=== PATIENT | male | born 1950 | race Caucasian/White ===

== ENCOUNTER 2017-05-14 10:25 | Inpatient (IN) | payer BC ==
[~2017-05-14] VITALS: Ht 177.8 cm; Wt 88.1 kg
[2017-05-14 12:23] LABS: BASOPHIL % 0.1 % (0-2)
[2017-05-14 12:29] LABS: PLATELET COUNT 118 x10^3mcL (130-400); RED CELL DISTRIBUTION WIDTH 14.8 % (11.5-14.5)
[2017-05-14 12:40] LABS: CALCIUM 8.3 mg/dL (8.5-10.1); CARBON DIOXIDE 24.5 mmol/L (21-32); CHLORIDE SERUM 101 mmol/L (98-107); CREATININE SERUM 0.9 mg/dL (0.7-1.3); GFR1 > 60 mL/min; GLUCOSE SERUM 102 mg/dL (74-106); POTASSIUM SERUM 3.4 mmol/L (3.5-5.1); SODIUM SERUM 137 mmol/L (136-145)
[2017-05-14 12:43] LABS: UA SPECIFIC GRAVITY <=1.005 (1.005-1.035); microscopic required? YES; urine erythrocyte TRACE (NEGATIVE)
[2017-05-14] MEDS ORDERED: SIMVASTATIN10 M1 (16:31)
[2017-05-14 17:19] VITALS: BP 166/93
[2017-05-14 17:21] VITALS: Ht 177.8 cm; Wt 88.1 kg
[2017-05-14] MEDS ORDERED: METOPROLOL TAR100 MG PO (17:31)
[2017-05-14] MEDS ORDERED: LIPITOR80 MG GT (17:32)
[2017-05-14 17:42] LABS: MAGNESIUM 1.6 mg/dL (1.8-2.4)
[2017-05-14 17:54] LABS: FREE T4 1.08 ng/dL (0.76-1.46); T3 TOTAL 0.5 ng/mL
[2017-05-14 17:55] LABS: FREE THYROXINE INDEX 1.5 ug/dL (1.4-4.5); T4(THYROXINE) 3.9 ug/dL (4.7-13.3)
[2017-05-14 20:15] LABS: BILIRUBIN DIRECT 0.86 mg/dL (0.0-0.2); BILIRUBIN TOTAL 3.52 mg/dL (0.20-1.00); TOTAL PROTEIN, SERUM 6.5 g/dL (6.4-8.2)
[2017-05-14 20:18] LABS: ALBUMIN 2.8 g/dL (3.4-5.0)
[2017-05-14] MEDS ORDERED: TEMAZEPAM15 MG PO (20:27)
[2017-05-14 20:48] VITALS: BP 109/67
[2017-05-14 21:19] LABS: BILIRUBIN DIRECT 1.11 mg/dL (0.0-0.2); BILIRUBIN TOTAL 3.4 mg/dL (0.20-1.00)
[2017-05-15 05:58] LABS: BASOPHIL % 0.2 % (0-2)
[2017-05-15 06:02] VITALS: BP 121/68
[2017-05-15 06:18] LABS: MAGNESIUM 1.8 mg/dL (1.8-2.4); PHOSPHOROUS 3.2 mg/dL (2.5-4.9)
[2017-05-15 06:31] LABS: PLATELET COUNT 108 x10^3mcL (130-400); RED CELL DISTRIBUTION WIDTH 15.1 % (11.5-14.5)
[2017-05-15 07:03] LABS: CALCIUM 8.2 mg/dL (8.5-10.1); CARBON DIOXIDE 25.4 mmol/L (21-32); CHLORIDE SERUM 105 mmol/L (98-107); CREATININE SERUM 0.8 mg/dL (0.7-1.3); GFR1 > 60 mL/min; GLUCOSE SERUM 77 mg/dL (74-106); POTASSIUM SERUM 4.1 mmol/L (3.5-5.1); SODIUM SERUM 142 mmol/L (136-145)
[2017-05-15 10:23] VITALS: BP 117/65
[2017-05-15 14:07] VITALS: BP 106/62
[2017-05-15 18:45] VITALS: BP 115/68
[2017-05-15 19:54] VITALS: BP 123/63
[2017-05-16 05:55] VITALS: BP 107/58
[2017-05-16 07:03] LABS: CALCIUM 8.2 mg/dL (8.5-10.1); CARBON DIOXIDE 26.2 mmol/L (21-32); CHLORIDE SERUM 104 mmol/L (98-107); CREATININE SERUM 0.7 mg/dL (0.7-1.3); GFR1 > 60 mL/min; GLUCOSE SERUM 96 mg/dL (74-106); POTASSIUM SERUM 3.2 mmol/L (3.5-5.1); SODIUM SERUM 138 mmol/L (136-145)
[2017-05-16 07:20] LABS: BASOPHIL % 0.2 % (0-2); PLATELET COUNT 132 x10^3mcL (130-400)
[2017-05-16 09:51] VITALS: BP 123/70
[2017-05-16 12:58] VITALS: BP 133/78
[2017-05-16 16:57] VITALS: BP 120/64
[2017-05-16 21:09] VITALS: BP 129/61
[2017-05-16] MEDS ORDERED: TEMAZEPAM15 MG PO (21:25)
[2017-05-17 05:55] VITALS: BP 138/69
[2017-05-17 06:23] LABS: BASOPHIL % 0.4 % (0-2); CALCIUM 8.1 mg/dL (8.5-10.1); CARBON DIOXIDE 29.6 mmol/L (21-32); CHLORIDE SERUM 106 mmol/L (98-107); CREATININE SERUM 0.8 mg/dL (0.7-1.3); GFR1 > 60 mL/min; GLUCOSE SERUM 92 mg/dL (74-106); PLATELET COUNT 155 x10^3mcL (130-400); POTASSIUM SERUM 3.7 mmol/L (3.5-5.1); SODIUM SERUM 139 mmol/L (136-145)
[2017-05-17 06:27] LABS: RED CELL DISTRIBUTION WIDTH 14.8 % (11.5-14.5)
[2017-05-17 09:57] VITALS: BP 131/77
[2017-05-17 13:10] VITALS: BP 131/77
[2017-05-17 17:45] VITALS: BP 141/76
[2017-05-17] MEDS ORDERED: LEVAQUIN500 M1 PO (18:35)
[2017-05-17] MEDS ORDERED: GAS RELIEF 8080 MG PO (18:35)
[2017-05-17] MEDS ORDERED: LAC PO (18:35)
[2017-05-17] MEDS ORDERED: LOPERAMIDE HCL2 M1 PO (18:39)
[2017-05-17] MEDS ORDERED: LOMOTIL1 TAB PO (18:39)
== END 2017-05-17 19:25 | disposition home or self-care (01) | DRG 441 ==
LOC: ED 10:25 → DU 15:57
PROVIDERS: Emergency Medicine Emergency Medical Services; Family Medicine; ADMIT Student in an Organized Health Care Education/Training Program
DX: K75.0 Abscess of liver (principal); E43 Unspecified severe protein-calorie malnutrition; N39.0 Urinary tract infection, site not specified; E78.5 Hyperlipidemia, unspecified; I10 Essential (primary) hypertension; Z68.30 Body mass index [BMI] 30.0-30.9, adult; N40.0 Benign prostatic hyperplasia without lower urinary tract symptoms; Z88.0 Allergy status to penicillin; E87.6 Hypokalemia; E83.51 Hypocalcemia
CPT/HCPCS: 83880; 84439; J0696; J1170; J1885; J2060; J2405; J3480; J3490; J7030; Q0092; Q9967

== ENCOUNTER 2019-07-24 01:11 | Inpatient (IN) | payer OTHER ==
[~2019-07-24] VITALS: Ht 177.8 cm; Wt 90.7 kg
[~2019-07-24 01:11] MED LIST: GAS RELIEF 8080 MG PO; LAC PO; LEVAQUIN500 M1 PO; LIPITOR80 MG GT; LOMOTIL1 TAB PO; LOPERAMIDE HCL2 M1 PO; METOPROLOL TAR100 MG PO; SIMVASTATIN10 M1; TEMAZEPAM15 MG PO
[2019-07-24 01:16] VITALS: Ht 177.8 cm; Wt 90.7 kg
--- NOTE | 2019-07-24 01:23 | NUR ---
PT C/O INTERMITTENT CHEST PAIN X1 MONTH. PT DESCRIBES PAIN 7/10 THROBBING PAIN THAT COMES AND GOES. PT STS THAT PAIN GETS WORSE W/ PHYSICAL EXERTION, AND LATELY WORSE WHEN HE LAYS DOWN AT NIGHT. PT STS THAT HE HAS ALSO BEEN FEELING DIZZY. PT REPORTS NO OTHER COMPLAINTS. PT DENIES SOB, BLURRED VISION, FEVER/CHILLS. PT PLACED ON SPOUT WORKER AND PULSE OX. NAD NOTED AT THIS TIME. AWAITING MSE. WILL CONTINUE TO MONITOR.
[2019-07-24 01:51] LABS: BASOPHIL % 0.7 % (0-2); RED CELL DISTRIBUTION WIDTH 12.3 % (11.5-14.5)
[2019-07-24 01:56] LABS: PLATELET COUNT 200 x10^3mcL (130-400)
[2019-07-24 02:00] LABS: CALCIUM 8.7 mg/dL (8.5-10.1); CARBON DIOXIDE 31.1 mmol/L (21-32); CHLORIDE SERUM 103 mmol/L (98-107); CREATININE SERUM 1.1 mg/dL (0.7-1.3); GFR1 > 60 mL/min; GLUCOSE SERUM 98 mg/dL (74-106); POTASSIUM SERUM 4.1 mmol/L (3.5-5.1); SODIUM SERUM 139 mmol/L (136-145)
[2019-07-24 02:04] LABS: ALBUMIN 3.8 g/dL (3.4-5.0); ALKALINE PHOSPHATASE 52 U/L (46-116); ALT/SGPT 25 U/L (16-63); AST/SGOT 14 U/L (15-37); BILIRUBIN TOTAL 0.46 mg/dL (0.20-1.00); TOTAL PROTEIN, SERUM 7.1 g/dL (6.4-8.2)
--- NOTE | 2019-07-24 02:48 | NUR ---
NITRO PASTE ADMINSTERED PER MD ORDER. 20G IV PLACED IN L AC. WILL CONTINUE TO MONITOR.
[2019-07-24] MEDS ORDERED: TOPROL XL50 MG PO (03:44)
--- NOTE | 2019-07-24 03:45 | NUR ---
PT AWAKE AND ALERT, LAYING IN POSITION OF COMFORT. VSS, RESPS E/U, NAD NOTED. SPOUSE AT BEDSIDE. CALL LIGHT W/IN REACH. NAD NOTED AT THIS TIME. AWAITING BED ASSIGNMENT.
--- NOTE | 2019-07-24 03:53 | NUR ---
REPORT GIVEN TO JESSENIA MON TO ASSUME PT CARE
--- NOTE | 2019-07-24 04:15 | NUR ---
RECIEVED PATIENT FROM ED WITH NURSE. ABLE TO AMBULATE TO BED. A/O X4. RATES CP 3/10 NON-RADIATING. HAS NITRO PATCH ON CHEST. DENIES ANY OTHER SYMPTOMS. ON TELE 6 SB 57 WITH BBB. IV TO LAC INFUSING WITHOUT ERYTHEMA OR INFILTRATION. CALL LIGHT AND BEDSIDE TABLE WITHIN REACH.
[2019-07-24 04:34] VITALS: BP 92/62
[2019-07-24 04:39] LABS: PHOSPHOROUS 3.8 mg/dL (2.5-4.9)
[2019-07-24 04:42] LABS: CHOLESTEROL/HDL RATIO 6.5
[2019-07-24 04:45] LABS: T3 TOTAL 0.71 ng/mL
[2019-07-24 04:49] LABS: FREE T4 0.89 ng/dL (0.76-1.46)
--- NOTE | 2019-07-24 06:25 | NUR ---
PATIENT IS RESTING IN BED, BREATHS EVEN AND REGULAR, NO DISTRESS. NITRO DOSE HELD THIS MORNING DUE TO LOW BP. IV INFUSING WITHOUT ERYTHEMA OR INFILTRATION, CALL LIGHT AND BEDSIDE TABLE WITHIN REACH. AT BEDSIDE WITH HOME MEDS. WILL ADD THEM TO MED REC, AND ENDORSE CARE TO DAYSHIFT NURSE.
[2019-07-24] MEDS ORDERED: BENAZEPRIL HCL/1 TAB PO (06:34)
--- NOTE | 2019-07-24 07:30 | NUR ---
THE PATIENT AWAKE AND ALERT; ORIENTED TO PERSON, PLACE AND TIME. PATIENT DENIES SHORTNESS OF BREATH, NAUSEA/VOMITING AT THIS TIME. PATIENT STATES HAVING MILD PRESSURE IN CHEST 1/10 AND TOLERABLE. NITRO PATCH REMAINS ON THE PATIENT'S CHEST. IVF NS TO KEEP VEIN OPEN VIA IV SITE AT LAC. TELE # 6 READS SINUS RHYTHM WITH BBB. CALL LIGHT WITHIN REACH. SIDE RAILS UP X2. BED IS AT LOWEST POSITION AND ALARM IS ON.
[2019-07-24 07:52] VITALS: BP 110/69
[2019-07-24 08:20] LABS: BASOPHIL % 1.2 % (0-2); PLATELET COUNT 194 x10^3mcL (130-400); RED CELL DISTRIBUTION WIDTH 12.8 % (11.5-14.5)
[2019-07-24 08:35] LABS: CALCIUM 8.1 mg/dL (8.5-10.1); CARBON DIOXIDE 28.4 mmol/L (21-32); CHLORIDE SERUM 104 mmol/L (98-107); CREATININE SERUM 0.9 mg/dL (0.7-1.3); GFR1 > 60 mL/min; GLUCOSE SERUM 139 mg/dL (74-106); POTASSIUM SERUM 4.1 mmol/L (3.5-5.1); SODIUM SERUM 139 mmol/L (136-145)
[2019-07-24 10:52] LABS: microscopic required? NO
--- NOTE | 2019-07-24 11:05 | NUR ---
NOTE FROM 903 TO 1044: RECEIVED A PHONE CALL FROM [employer] NOTIFYING THE TROP LEVEL [phone]. ATTEMPTED TO CALL DR. YEH VIA SERVICE: [phone]. THE MACHINE REQUESTED TO WAIT FOR THE NEXT AVAILABLE FORGE OPERATOR. WAITING FOR 2 MINUTES NO ANSWER. ATTEMPTED SEVERAL TO CALL RESIDENT STUDENT SUPPORT COUNSELOR AT [phone]; NO ANSWERED. PAGED GATE RESIDENT STUDENT SUPPORT COUNSELOR TO NOTIFY THE TROP LEVEL AND AWAIT FOR CALL BACK. THE CHARGE NURSE CAME BACK FROM THE MEETING AND MADE AWARE. THE CHARGE NURSE NOTIFIED DR. YEH AND DR. ROTHMAN WHEN THEY WERE JUST OUT OF THE MEETING. NEW ORDER: HEPARIN DRIP RECEIVED. WILL CARRY OUT THE ORDER.
[2019-07-24 11:07] LABS: urine erythrocyte NEGATIVE (NEGATIVE)
--- NOTE | 2019-07-24 11:42 | NUR ---
AT 1134; BOLUS OF 5500 UNITS OF HEPARIN ADMINISTERED TO THE PATIENT AND HEPARIN DRIP INITIATED AT 1136 AT 1100 UNITS/HR. PER HEPARIN PROTOCOL. WILL RECHECK PTT AT 1735.
[2019-07-24 11:46] LABS: AMPHETAMINE QUAL UR NONE DETECTED (See below)
[2019-07-24 11:48] VITALS: BP 108/56
[2019-07-24 16:18] VITALS: BP 112/70
--- NOTE | 2019-07-24 18:36 | NUR ---
THE PTT LEVEL IS 72.7; THE HEPARIN DRIP TITRATED FROM 1100UNITS/HR DOWN TO 900 UNITS/HR. NEXT PTT LEVEL WILL BE RECHECKED AT 2235.
--- NOTE | 2019-07-24 19:20 | NUR ---
REC'D PT FROM DAY NURSE. AT BEDSIDE. PT RESTING IN BED. AAOX4, SPEECH CLEAR, FOLLOWS COMMANDS. TELE 6. DENIES CP, DIZZINESS, OR PALPITATIONS. REPORTS INTERMITTENT CP TO MID CHEST BUT DENIES AT THIS TIME. NITRO PATCH TO STERNUM. PT DENIES DIZZINESS OR SCHULTE. NO EDEMA NOTED. DENIES RESP DISTRESS OR SOB. BREATHING EVEN/UNLABORED ON RA. ABD SOFT/ROUND. REPORTS MILD TENDERNESS TO L MID ABD UPON PALPATION. DENIES PAIN AT REST. VOIDING FREELY. AMBULATORY. SKIN INTACT. IV TO LAC PATENT AND INFUSING NS @ 10 ML/HR AND HEPARIN @ 900 UNITS/HR, SITE WNL. CALL LIGHT WITHIN REACH, BED AT LOWEST POSITION. WILL CONTINUE TO MONITOR.
[2019-07-24 20:51] VITALS: BP 100/61
--- NOTE | 2019-07-24 23:40 | NUR ---
PTT 47.2. NO CHANGE PER PROTOCOL. HEPARIN RESUMES @ 900 UNITS/HR. NEXT PTT @ 0230.
--- NOTE | 2019-07-25 02:12 | NUR ---
PT RESTING IN BED WITH EYES CLOSED. NO SIGNS OF DISTRESS OR PAIN NOTED. BREATHING EVEN/UNLABORED ON RA. HEPARIN INFUSING @ 900 UNITS/HR. CALL LIGHT WITHIN REACH, BED AT LOWEST POSITION. WILL CONTINUE TO MONITOR.
--- NOTE | 2019-07-25 03:43 | NUR ---
PTT 45.8. CONFIRMED WITH CHARGE NURSE KAVON TO ROUND UP TO 46. NO CHANGE IN RATE PER PROTOCOL. HEPARIN RESUMES @ 900 UNITS/HR. THERAPEUTIC X2. NEXT PTT 07/26 @ 0500.
--- NOTE | 2019-07-25 04:09 | NUR ---
PT C/O STERNAL CHEST PAIN 5/6-10, SHARP, RADIATING TO L ARM. ALSO HAS PAIN TO HIS GUMS. NO PAIN MEDS ON BOARD. NITRO PATCH IN PLACE TO MID STERNUM. CALLED DR. JOHNSON AND MADE AWARE. STATED WILL ORDER SOMETHING FOR PAIN.
--- NOTE | 2019-07-25 04:18 | NUR ---
PT STATES CP IS UP TO 06/[address] ALEX LE. WILL REQUEST MORPHINE.
[2019-07-25 04:19] VITALS: BP 157/86
--- NOTE | 2019-07-25 04:23 | NUR ---
SPOKE TO DR. JOHNSON AND MADE AWARE OF PT'S CP. STATED WILL ORDER ONE TIME MORPHINE.
--- NOTE | 2019-07-25 05:25 | NUR ---
PT AWAKE AND RESTING IN BED. REPORTS CP IS DOWN TO 2-3, STERNAL AND SHARP. PAIN TOLERABLE. NO OTHER COMPLAINTS AT THIS TIME. DENIES ANY SOB. HEPARIN CONTINUES @ 900 UNITS/HR. IV SITE TO LAC WNL. CALL LIGHT WITHIN REACH, BED AT LOWEST POSITION. WILL ENDORSE TO DAY NURSE.
--- NOTE | 2019-07-25 07:49 | NUR ---
PT LYING IN BED, EYES CLOSED. BREATHING EQUAL/ UNLABORED ON RA. HEPARIN RUNNING AT 900 UNITS/ HR. BED IN LOW POSITION, CALL LIGHT IN REACH, WILL CONTINUE TO MONITOR
[2019-07-25 08:31] VITALS: BP 118/76
[2019-07-25 12:31] VITALS: BP 129/78
--- NOTE | 2019-07-25 12:45 | NUR ---
PT SITTING IN BED, EATING LUNCH. BREATHING EQUAL/ UNLABORED ON RA. NO C/O PAIN AT THIS TIME. IV HEPARIN RUNNING AT 900 UNITS/ HR. IVF RUNNING AT 10ML/HR. NO REDNESS/ SWELLING TO IV SITE. BED IN LOW [id number], CALL LIGHT IN REACH. WILL CONTINUE TO MONITOR
--- NOTE | 2019-07-25 17:00 | NUR ---
PT LYING IN BED, A/A. BREATHING EQUAL/ UNLABORED ON RA. HEPARIN FLUIDS RUNNING AT 900 UNITS/HR. IVF RUNNING AT 10ML/HR. NO REDNESS/ SWELLING AT IV SITE. CHEST PAIN 2/10, RESTING COMFORTABLY IN BED. BED IN LOW POSITION, CALL LIGHT IN REACH, FAMILY AT BEDSIDE
[2019-07-25 17:02] VITALS: BP 134/78
--- NOTE | 2019-07-25 18:44 | NUR ---
PT RESTING IN BED A/A. BREATHING EQUAL/ UNLABORED ON RA. C/O 2/10 CHEST PAIN. PT STATES PT TOLERABLE AT THIS TIME. HEPARIN RUNNING AT 900 UNITS/HR, IVF RUNNING AT 10ML/HR. NO REDNESS/SWELLING AT IV SITE. BED IN LOW POSITION, CALL LIGHT IN REACH, BLEEDING PRECAUTIONS MAINTAINED. FAMILY AT BEDSIDE. WILL ENDORSE TO ON COMING NURSE
[2019-07-25 19:38] VITALS: BP 126/77
--- NOTE | 2019-07-25 20:23 | NUR ---
RECEIVED PTON HEPARIN DRIP AT 900UNITS/HR NO S/S OF BLEEDING NOTED, PT DENY CHEST PAIN AT THE MOMENT , ;WENDI SOUNDS CTA ABD SOFT BS ACTIVE X4, PT'S ON TELE NUMBER 6 THAT SHOWS NSR/BBB. . CALL LIGHT WITHIN PT;S REACH , WILL CON;T TO MONITOR AND ASSIST PT WITH CARE .
[2019-07-26] VITALS (12 sets, daily range): BP systolic 112–142; BP diastolic 61–78
--- NOTE | 2019-07-26 02:01 | NUR ---
PT'S IN BED WITH EYES CLOSED, TELE NSR WITH BBB, NPO AFTER MIDNIGHT , HEPAIN DRIN AT 900UNITS/HR NO S/S OF BLEEDING NOTED .
--- NOTE | 2019-07-26 05:08 | NUR ---
I HAVE REVIEWED THE DATA COLLECTION BY WHOLESALE BUYER (NAME):HARVEY BROWN ENTERED ON (DATE/TIME): I CONCUR WITH THE DATA AND ANY EXCEPTIONS OR COMMENTS ARE LISTED BELOW:
--- NOTE | 2019-07-26 06:14 | NUR ---
KEPT PT NPO AFTER MIDNIGHT ORDERED , ALL DUE MEDS GIVEN NO REACTION NOTED , PT'S IN BED AWAKE DENY CHEST PAIN AT THE MOMENT , PIV INTACT INFUSING HEPARIN AT 900UNITS/HR NO S/S OPF BLEEDING NOTED .
--- NOTE | 2019-07-26 07:31 | NUR ---
PT LYING IN BED A/A. BREATHING EQUAL/ UNLABORED ON RA. NO C/O CHEST PAIN AT THIS TIME. HEAPRIN RUNNING AT 900ML/HR AND NS RUNNING AT 10ML/HR. NO REDNESS/SWELLING TO IV SITE. BED IN LOW POSITION/ CALL LIGHT IN REACH, WILL CONTINUE TO MONITOR
--- NOTE | 2019-07-26 09:00 | NUR ---
HEAPRIN DRIP STOPPED FOR PROCEDURE PER DR DAS
--- NOTE | 2019-07-26 10:55 | NUR ---
PATIENT STATED THAT HE UNDERSTAND THE PROCEDURE THAT WAS EXPLAINED TO HIM BY DOCTOR DAS YESTERDAY AT BEDSIDE. CONSENT FOR CARDIAC CATHERIZATION SIGNED BY PATIENT WHO IS AWAKE, ALERT, ORIENTED X4. FAMILY MEMBERS AT BEDSIDE.
--- NOTE | 2019-07-26 10:59 | NUR ---
PT TO NICK SETTER, BY BED. NO ACUTE DISTRESS NOTED. NO REDNESS/ SWELLING TO IV SITE
--- NOTE | 2019-07-26 11:00 | NUR ---
RECEIVED TO OPS IN PREPARATION FOR TECHNICIAN SUBMARINE CABLE EQUIPMENT. AWAKE AND ALERT. TEMP 99.2. HR=56 ON PORTABLE STIFF LEG DERRICK OPERATOR SINUS MANUEL WITH BBB. DENIES CHEST DISCOMFORT. RESP 18 EVEN UNLABORED. PULSE OX 99% RA. NO RESP DISTRESS. NITRO PATCH IN PLACE LEFT UPPER CHEST. DC=886/73. RIGHT RADIAL AND RIGHT PEDAL PULSES PALPABLE. IV #20 ANGIO LAC PATENT INFUSING NORMAL SALINE TKO. PT ANXIOUS. STATES "NEVER HAD THIS BEFORE. THE DR SAID I CAME IN AT THE RIGHT TIME." CHRISTIANO HERE FROM TECHNICIAN SU[employer]QUIPMENT TO REVIEW PROCEDURE. RIGHT GROIN AND RIGHT RADIAL SITE SHAVE PREPPED BY [employer]. JESSIKA WIPES COMPLETED. LABS ON CHART. AND FAMILY AT BEDSIDE. WILL CONTINUE TO MONITOR. SIDE RAILS UP X2. CALL LIGHT IN REACH. NPO SINCE [id number]. ALLERGIC TO PCN, RED ARMBAND IN PLACE.
--- NOTE | 2019-07-26 11:55 | NUR ---
PT CONNECTED TO PORTABLE JUMPBASTING FACING BASTER. PT TAKEN TO ARTIFICIAL MARBLE WORKER AT THIS TIME VIA BED. IN OPS AT THIS TIME.
--- NOTE | 2019-07-26 13:34 | NUR ---
9065 PATIENT RECEIVED FROM EMAIL ENGINEER AT THIS TIME ACCOMPANIED BY EMAIL ENGINEER RNS. TELEPHONE ENDORSEMENT RECEIVED FROM ALEXANDRA MON. PATIENT ALERT AND AWAKE AND ABLE TO MAKE ALL NEEDS KNOWN. NO SOB NOTED. RESPIRATIONS EVEN AND UNLABORED. DENIES ANY PAIN OR DISTRESS AT THIS TIME. VSS. PATIENT NOTED WITH TEGADERM OVER R GROIN INSERTION SITE. SCANT AMOUNT OF RED STAIN NOTED. NO BLEEDING NO HEMATOMA NOTED. PEDAL PULSES EQUAL BILATERALLY. PATIENT MADE COMFORTABLE. CALL LIGHT WITHIN REACH. WILL CONTINUE TO MONITOR.
--- NOTE | 2019-07-26 13:59 | NUR ---
1355 PATIENT ALERT AND AWAKE AND ABLE TO MAKE ALL NEEDS KNOWN. NO SOB NOTED. RESPIRATIONS EVEN AND UNLABORED. DENIES ANY PAIN OR DISTRESS AT THIS TIME. SKIN WARM AND DRY TO TOUCH. PATIENT WITH AT BEDSIDE. VSS. DRESSING TO R GROIN REMAINS WITH SMALL AMOUNT OF RED STAINING. NO HEMATOMA OR BRUISING AT R GROIN SITE NOTED. PEDAL PULSES PALPABLE BILATERALLY. COMFORT AND SAFETY MEASURES IN PLACE. CALL LIGHT WITHIN REACH. WILL CONTINUE TO MONITOR.
--- NOTE | 2019-07-26 14:33 | NUR ---
1425 PATIENT ALERT AND AWAKE AND ABLE TO MAKE ALL NEEDS KNOWN. NO SOB NOTED. RESPIRATIONS EVEN AND UNLABORED. DENIES ANY PAIN OR DISTRESS AT THIS TIME. PATIENT REMAINS WITH SAME SMALL AMOUNT OF RED STAINING TO TEGADERM DRESSING. NO BLEEDING OR HEMATOMA NOTED. PEDAL PULSES EQUAL BILATERALLY. PATIENT TRANSPORTED BACK TO ROOM AT THIS TIME VIA BED AND ACCOMPANIED BY RN AND CHAIR MECHANIC ON TELE MONITORING. ALL NEEDS MET.
--- NOTE | 2019-07-26 14:34 | NUR ---
PT RETURNED FROM SILK SPREADER. A/A. BREATHING EQUAL/ UNLABORED ON RA. VSS. R. GROIN SITE DRESSING CDI, WITH SMALL AMOUNT OF BLOOD, AND NO SWELLING NOTED. DISTAL PULSES PALPABLE AND STRONG, COLOR WNL, AND FEET COOL TO THE TOUCH. IVF RUNNING AT 100ML/HR. NO REDNESS/ SWELLING TO IV SITE. PT WILL REMAIN ON BED REST FOR THE NEXT 4 HOURS, PT AWARE. BED IN LOW POSITION, CALL LIGHT IN REACH, FAMILY AT BED SIDE. WILL CONTINUE TO MONITOR
--- NOTE | 2019-07-26 15:00 | NUR ---
SEEN BY DOCTOR DELGADO AT BEDSIDE. NOTED NEW ORDER TO TRANSFER TO [facility]. PATIENT AND PATIENT'S SPOUSE MADE AWARE PLAN OF CARE.
--- NOTE | 2019-07-26 15:01 | NUR ---
NO BLEEDING/SWELLING AT R. GROIN SITE. BANDAGE CDI, WITH SMALL AMOUNT OF DRY BLOOD. DISTAL PULSES PALPABLE/ STRONG. SKIN COLOR/ TEMP WNL.
[2019-07-26] MEDS ORDERED: APAP/HYDROCODON1 T13 PO (15:02)
[2019-07-26] MEDS ORDERED: TYL325 PO (15:02)
[2019-07-26] MEDS ORDERED: MOR2I IV (15:02)
[2019-07-26] MEDS ORDERED: ECO81 PO (15:02)
[2019-07-26] MEDS ORDERED: ZOFI IV (15:03)
--- NOTE | 2019-07-26 15:32 | NUR ---
NO BLEEDING/ SWELLING TO R. GROIN SITE. DISTAL PULSES PALPABLE/STRONG. COLOR/ TEMP WNL. WILL CONTINUE TO MONITOR
--- NOTE | 2019-07-26 15:41 | NUR ---
SEEN BY DOCTOR DAS. PER DOCTOR THIAGO NO NEED TO RESUME HEPARIN AT THIS TIME.
--- NOTE | 2019-07-26 16:02 | NUR ---
NO BLEEDING/ SWELLING TO R. GROIN SITE. DISTAL PULSES STONG/ PALPABLE. COLOR/ TEMP WNL. WILL CONTINUE TO MONITOR
--- NOTE | 2019-07-26 16:30 | NUR ---
NO BLEEDING/ SWELLING AT R. GROIN SITE. DISTAL PULSES STRONG/ PALPABLE. COLOR/ TEMP WNL. WILL CONINTUE TO MONITOR
--- NOTE | 2019-07-26 17:04 | NUR ---
NO SWELLING/ BLEEDING AT R GROIN SITE. DRESSING CDI WITH SMALL AMOUNT OF DRY BLOOD. DISTAL PULSES PALPABLE AND STRONG. COLOR/ TEMP OF SKIN WNL. WILL CONTINUE TO MONITOR
--- NOTE | 2019-07-26 17:33 | NUR ---
NO BLEEDING/ SWELLING AT R. GROIN. BANDAGE CDI/ WITH SMALL AMOUNT OF DRY BLOOD. DISTAL PULSES PALPABLE/ STRONG. COLOR/ TEMP OF SKIN WNL. WILL CONTINUE TO MONITOR
--- NOTE | 2019-07-26 18:42 | NUR ---
PT SITTING IN BED EATING LUNCH. BREATHING EQUAL/ UNLABORED ON RA. NO C/O CHEST PAIN AT THIS TIME. NO SWELLING/ BLEEDING AT R. GROIN SITE. DISTAL PULSES TO R. GROIN PALPABLE/ STRONG. COLOR/ TEMP OF SKIN WNL. IVF RUNNING AT 100ML/HR. NO REDNESS/SWELLING TO IV SITE. BED IN LOW POSITION, CALL LIGHT IN REACH, FAMILY AT BED SIDE. WILL ENDORSE TO ON COMING NURSE
--- NOTE | 2019-07-26 19:00 | NUR ---
FINISHED 100% OF CARDIAC DIET DINNER. NO BLEEDING TO RIGHT GROIN PUNCTURE SITE, DRSG INTACT. DENIES CHEST PAIN/PRESSURE OR PALPITATION AT THIS TIME. VOIDED X1 AFTRER CARDIAC CATHERIZATION.
--- NOTE | 2019-07-26 19:14 | NUR ---
RECEIVED PT FROM PREVIOUS SHIFT. PT A/OX4. DENIES PAIN. DENIES SOB ON RA. IV PATENT AND INFUSING WELL WITH NO S/S OF INFILTRATION. CALL LIGHT WITHIN REACH, BED IN LOW POSITION. WILL CONTINUE TO MONITOR.
--- NOTE | 2019-07-27 00:31 | NUR ---
PT RESTING IN NO ACUTE DISTRESS. RR EVEN AND UNLABORED. CALL LIGHT WITHIN REACH, BED IN LOW POSITION. WILL CONTINUE TO MONITOR.
[2019-07-27 04:20] VITALS: BP 97/67
--- NOTE | 2019-07-27 05:55 | NUR ---
REPORT CALLED TO MARIA AT [facility]. PT IN NO ACUTE DISTRESS. AWAITTING TRANSPORT. WILL CONTINUE TO MONITOR.
--- NOTE | 2019-07-27 06:26 | NUR ---
PT DISCHARGED VIA AMBULANCE TO [facility] TE[facility]. PT IN NO ACUTE DISTRESS. TELE REMOVED. REPORT GIVEN TO ACCEPTING FACILITY.
== END 2019-07-27 06:30 | disposition short-term general hospital (02) | DRG 281 ==
LOC: ED 01:11 → DU 03:32
PROVIDERS: Emergency Medicine; General Practice; Internal Medicine Geriatric Medicine; ADMIT Internal Medicine
PROC: B215YZZ Fluoroscopy of Left Heart using Other Contrast (ICD-10-PCS; 2019-07-26)
PROC: B211YZZ Fluoroscopy of Multiple Coronary Arteries using Other Contrast (ICD-10-PCS; 2019-07-26)
PROC: 4A023N7 Measurement of Cardiac Sampling and Pressure, Left Heart, Percutaneous Approach (ICD-10-PCS; principal; 2019-07-26 12:30)
DX: I21.4 Non-ST elevation (NSTEMI) myocardial infarction (principal); I50.30 Unspecified diastolic (congestive) heart failure; I25.119 Atherosclerotic heart disease of native coronary artery with unspecified angina pectoris; I11.9 Hypertensive heart disease without heart failure; E78.5 Hyperlipidemia, unspecified; Z79.82 Long term (current) use of aspirin; Z68.29 Body mass index [BMI] 29.0-29.9, adult
CPT/HCPCS: 93458; G0278; CLHCL; 83880; 84439; C1760; C1769; C1887; C1894; G0378; J1644; J2001; J2250; J2270; J3010; J7030; J7040; Q0092; Q9967